=== PATIENT | male | born 1965 | race Caucasian/White ===

== ENCOUNTER 2022-07-04 20:18 | Emergency (ER) | payer OTHER ==
[2022-07-04 20:25] VITALS: BP 129/80; PULSE 72; RESP 18; TEMP 97.2; BMI 25.4
[2022-07-04 22:12] LABS: BASO % 0.2 % (0-2.0); EOS % 2.5 % (0-4.5); HEMATOCRIT 39.4 % (35.4-49); HEMOGLOBIN 13.5 GM/dL (11.7-16.9); LYMPH % 34.3 % (8-40); MCH 30.1 pg (25.7-33.7); MCHC 34.3 g/dl (32.0-35.9); MEAN CELL VOLUME 87.8 fl (80-96); MEAN PLT VOLUME 8.2 fl (7.5-11.1); MONO % 11.7 % (3.8-10.2); NEUT % 51.3 % (42.8-82.8); PLATELET COUNT 186 10^3/uL (134-434); RBC 4.49 M/mm3 (4.00-5.60); RDW 14.2 % (11.9-15.9); WHITE BLOOD COUNT 7.9 K/mm3 (4.0-10.0)
[2022-07-04 22:23] LABS: PH,URINE 6.5 (5.0-8.0); URINE APPEARANCE CLEAR; URINE BILIRUBIN NEGATIVE (NEGATIVE); URINE COLOR YELLOW; URINE GLUCOSE (UA) NEGATIVE (NEGATIVE); URINE KETONE NEGATIVE (NEGATIVE); URINE LEUK ESTERASE NEGATIVE (NEGATIVE); URINE NITRITE NEGATIVE (NEGATIVE); URINE PROTEIN NEGATIVE (NEGATIVE); URINE UROBILINOGEN 0.2 mg/dL (0.2-1.0)
[2022-07-04 22:45] LABS: ALBUMIN 3.9 g/dl (3.4-5.0)
[2022-07-04 22:46] LABS: BLOOD UREA NITROGEN 14.5 mg/dL (7-18)
[2022-07-04 22:47] LABS: CREATININE 0.9 mg/dL (0.55-1.3)
[2022-07-04 22:49] LABS: BILIRUBIN,TOTAL 0.6 mg/dL (0.2-1); TOT PROT 7.5 g/dl (6.4-8.2)
== END 2022-07-05 00:04 | disposition home or self-care (01) ==
LOC: JER 20:18
DX: R41.3 Other amnesia (principal)
CPT/HCPCS: 36415; 80053; 81003; 85025; 87086; 93005; 93010; 99284-25

== ENCOUNTER 2022-07-05 22:52 | Observation (INO) | payer OTHER ==
[2022-07-06 01:00] LABS: BASO % 0.4 % (0-2.0); EOS % 3.1 % (0-4.5); HEMATOCRIT 41.9 % (35.4-49); HEMOGLOBIN 14.1 GM/dL (11.7-16.9); MCH 29.4 pg (25.7-33.7); MCHC 33.6 g/dl (32.0-35.9); MEAN CELL VOLUME 87.5 fl (80-96); MEAN PLT VOLUME 8.5 fl (7.5-11.1); MONO % 12.6 % (3.8-10.2); NEUT % 51.9 % (42.8-82.8); PLATELET COUNT 185 10^3/uL (134-434); RBC 4.79 M/mm3 (4.00-5.60); WHITE BLOOD COUNT 8.3 K/mm3 (4.0-10.0)
[2022-07-06 01:22] LABS: ALBUMIN 4.2 g/dl (3.4-5.0); ANION GAP 7 MMOL/L (8-16); BLOOD UREA NITROGEN 15.7 mg/dL (7-18); CALCIUM 9.5 mg/dL (8.5-10.1); CHLORIDE 104 mmol/L (98-107); CO2 30 mmol/L (21-32); GLUCOSE,RANDOM 107 mg/dL (74-106); MAGNESIUM 2.4 mg/dL (1.8-2.4); SODIUM 140 mmol/L (136-145)
[2022-07-06 01:26] LABS: CREATININE 0.9 mg/dL (0.55-1.3); SGOT/AST 15 U/L (15-37); SGPT/ALT 21 U/L (13-61)
[2022-07-06 01:27] LABS: BILIRUBIN,TOTAL 0.6 mg/dL (0.2-1); TOT PROT 7.8 g/dl (6.4-8.2)
[2022-07-06 01:29] LABS: ALK PHOS 82 U/L (45-117)
[2022-07-06] MEDS ORDERED: MELATONIN 5 MG TABLETS PO ONE (03:04)
[2022-07-06] MEDS ORDERED: MELATONIN 5 MG TABLETS ONE (03:05)
[2022-07-06 04:03] LABS: URINE APPEARANCE CLEAR; URINE BILIRUBIN NEGATIVE (NEGATIVE); URINE COLOR YELLOW; URINE GLUCOSE (UA) NEGATIVE (NEGATIVE); URINE KETONE NEGATIVE (NEGATIVE); URINE LEUK ESTERASE NEGATIVE (NEGATIVE); URINE NITRITE NEGATIVE (NEGATIVE); URINE PROTEIN NEGATIVE (NEGATIVE); URINE UROBILINOGEN 0.2 mg/dL (0.2-1.0)
[2022-07-06 05:46] LABS: METHADONE, UR NEGATIVE (NEGATIVE); URINE BENZODIAZEPINES NEGATIVE (NEGATIVE)
[2022-07-06 05:47] LABS: URINE AMPHETAMINES NEGATIVE (NEGATIVE)
[2022-07-06 05:48] LABS: OPIATES, URI NEGATIVE (NEGATIVE); PHENCYCLIDINE,URINE NEGATIVE (NEGATIVE)
[2022-07-06 05:50] LABS: COCAINE, UR NEGATIVE (NEGATIVE); URINE BARBITURATES NEGATIVE (NEGATIVE)
[2022-07-06] MEDS ORDERED: MAG HYDROX/AL HYDROX/SIMETH 30 ML UNIT-DOSE CUP ONE (06:12)
[2022-07-06] MEDS ORDERED: MAG HYDROX/AL HYDROX/SIMETH 30 ML UNIT-DOSE CUP PO ONE (06:12)
[2022-07-06] MEDS ORDERED: FAMOTIDINE 20 MG TABLET PO ONE (07:42)
[2022-07-06] MEDS ORDERED: FAMOTIDINE 20 MG TABLET ONE (07:53)
[2022-07-06] MEDS ORDERED: ESCITALOPRAM OXALATE 10 MG TABLET ONE (21:52)
[2022-07-06] MEDS: MELATONIN 5 MG TABLETS PO PRN (21:55)
[2022-07-06] MEDS: DONEPEZIL HCL 10 MG TABLET (FP) PO SCH (21:55)
[2022-07-06] MEDS: ESCITALOPRAM OXALATE 20 MG TABLET PO SCH (21:55)
[2022-07-07 06:26] VITALS: BMI 25.4
[2022-07-07] MEDS ORDERED: MAG HYDROX/AL HYDROX/SIMETH 30 ML UNIT-DOSE CUP PO PRN (06:40)
[2022-07-07] MEDS ORDERED: ESCITALOPRAM OXALATE 10 MG TABLET ONE (21:36)
[2022-07-07] MEDS: MELATONIN 5 MG TABLETS PO PRN (22:09)
[2022-07-07] MEDS: ESCITALOPRAM OXALATE 20 MG TABLET PO SCH (22:09)
[2022-07-07] MEDS: DONEPEZIL HCL 10 MG TABLET (FP) PO SCH (22:09)
[2022-07-07 22:56] VITALS: RESP 20
[2022-07-08] MEDS ORDERED: ESCITALOPRAM OXALATE 10 MG TABLET ONE (21:13)
[2022-07-08] MEDS: DONEPEZIL HCL 10 MG TABLET (FP) PO SCH (21:40)
[2022-07-08] MEDS: MELATONIN 5 MG TABLETS PO PRN (21:40)
[2022-07-08] MEDS: ESCITALOPRAM OXALATE 20 MG TABLET PO SCH (21:40)
[2022-07-09] MEDS ORDERED: SUVOREXANT 10 MG TABLET PO PRN (09:44)
[2022-07-09] MEDS ORDERED: ESCITALOPRAM OXALATE 10 MG TABLET ONE (21:10)
[2022-07-09] MEDS: ESCITALOPRAM OXALATE 20 MG TABLET PO SCH (21:11)
[2022-07-09] MEDS: DONEPEZIL HCL 10 MG TABLET (FP) PO SCH (21:11)
[2022-07-10 12:30] VITALS: BP 118/75; PULSE 68; TEMP 98.5
== END 2022-07-10 12:00 | disposition home health service (06) ==
LOC: JER 22:52 → JERBED 07-06 18:30 → INTOOBSV 07-06 18:30 → J8W 07-06 21:25
PROVIDERS: ADMIT Internal Medicine; ATTEND Internal Medicine
DX: F03.90 Unspecified dementia, unspecified severity, without behavioral disturbance, psychotic disturbance, mood disturbance, and anxiety (principal)
CPT/HCPCS: 0241U-QW; 36415; 80053; 80307; 81003; 83735; 84439; 84443; 84479; 85025; 87086; 93005; 93010; 97116-GP; 97161-GP; 99285-25; G0378

== ENCOUNTER 2022-07-13 09:55 | Emergency (ER) | payer OTHER ==
[2022-07-13 10:15] VITALS: BP 129/71; PULSE 79; RESP 18; TEMP 97.6; BMI 24.3
[2022-07-13] MEDS ORDERED: DIPHTH,PERTUSS(ACELL),TET 0.5 ML DISP.SYRIN IM ONE ×2 (10:51→11:28)
== END 2022-07-13 12:24 | disposition home or self-care (01) ==
LOC: JER 09:55
PROC: 3E0234Z Introduction of Serum, Toxoid and Vaccine into Muscle, Percutaneous Approach (ICD-10-PCS; principal; 2022-07-13)
DX: S09.90XA Unspecified injury of head, initial encounter (principal)
CPT/HCPCS: 70450-TC; 90471; 90715; 99284-25

== ENCOUNTER 2022-07-18 20:08 | Emergency (ER) | payer OTHER ==
[2022-07-18 20:51] VITALS: BP 117/76; PULSE 61; RESP 19; TEMP 98; BMI 24.3
[2022-07-18] MEDS ORDERED: ACETAMINOPHEN 500 MG TABLET (FP) PO ONE (22:45)
[2022-07-18 22:54] LABS: EPI CELLS 7 /uL (0-25.1); HYALINE CASTS 1 /uL (0-3.1); URINE APPEARANCE CLEAR; URINE BACTERIA 16 /uL (0-1359); URINE BILIRUBIN NEGATIVE (NEGATIVE); URINE COLOR YELLOW; URINE GLUCOSE (UA) NEGATIVE (NEGATIVE); URINE KETONE NEGATIVE (NEGATIVE); URINE LEUK ESTERASE TRACE (NEGATIVE); URINE NITRITE NEGATIVE (NEGATIVE); URINE PROTEIN NEGATIVE (NEGATIVE); URINE RBC 9 /uL (0-23.9); URINE UROBILINOGEN 0.2 mg/dL (0.2-1.0); URINE WBC 9 /uL (0-25.8)
[2022-07-18] MEDS ORDERED: ACETAMINOPHEN 500 MG TABLET (FP) ONE (23:32)
[2022-07-18] MEDS ORDERED: CEPHALEXIN MONOHYDRATE 500 MG CAPSULE (UD) PO ONE (23:58)
[2022-07-19] MEDS ORDERED: CEPHALEXIN MONOHYDRATE 500 MG CAPSULE (UD) ONE (00:03)
[2022-07-19] MEDS ORDERED: IBUPROFEN 600 MG TABLET (FP) PO ONE ×2 (00:07→00:08)
== END 2022-07-19 00:11 | disposition home or self-care (01) ==
LOC: JER 20:08
DX: N39.0 Urinary tract infection, site not specified (principal); N50.812 Left testicular pain
CPT/HCPCS: 36415; 76870-TC; 81003; 87086; 87491; 87591; 99284-25

== ENCOUNTER 2022-08-01 10:31 | Inpatient (IN) | payer OTHER ==
[2022-08-01 11:48] VITALS: BMI 24.3
[2022-08-01] MEDS ORDERED: ACETAMINOPHEN 325 MG TABLET (FP) PO ONE ×2 (13:42→20:37)
[2022-08-01 13:45] LABS: BASO % 0.4 % (0-2.0); EOS % 1.7 % (0-4.5); HEMATOCRIT 39.8 % (35.4-49); HEMOGLOBIN 13.5 GM/dL (11.7-16.9); LYMPH % 25.5 % (8-40); MEAN CELL VOLUME 88.2 fl (80-96); MEAN PLT VOLUME 8.3 fl (7.5-11.1); MONO % 10.1 % (3.8-10.2); NEUT % 62.3 % (42.8-82.8); PLATELET COUNT 178 10^3/uL (134-434); RBC 4.51 M/mm3 (4.00-5.60); RDW 14.4 % (11.9-15.9); WHITE BLOOD COUNT 7.7 K/mm3 (4.0-10.0)
[2022-08-01] MEDS ORDERED: ACETAMINOPHEN 325 MG TABLET (FP) ONE ×2 (13:56→22:59)
[2022-08-01 14:13] LABS: CALCIUM 8.8 mg/dL (8.5-10.1)
[2022-08-01 14:14] LABS: ALBUMIN 3.8 g/dl (3.4-5.0)
[2022-08-01 14:19] LABS: BILIRUBIN,TOTAL 0.7 mg/dL (0.2-1); TOT PROT 7.1 g/dl (6.4-8.2)
[2022-08-01 14:31] LABS: CREATININE 0.9 mg/dL (0.55-1.3)
[2022-08-01 18:22] LABS: URINE APPEARANCE CLEAR; URINE BILIRUBIN NEGATIVE (NEGATIVE); URINE COLOR YELLOW; URINE GLUCOSE (UA) NEGATIVE (NEGATIVE); URINE KETONE NEGATIVE (NEGATIVE); URINE LEUK ESTERASE NEGATIVE (NEGATIVE); URINE NITRITE NEGATIVE (NEGATIVE); URINE PROTEIN NEGATIVE (NEGATIVE)
[2022-08-01] MEDS ORDERED: MELATONIN 5 MG TABLETS PO ONE (19:49)
[2022-08-01] MEDS ORDERED: MELATONIN 5 MG TABLETS ONE (20:13)
[2022-08-02] MEDS ORDERED: MELATONIN 5 MG TABLETS PO ONE (03:17)
[2022-08-02 09:24] LABS: ALBUMIN 3.8 g/dl (3.4-5.0)
[2022-08-02 09:25] LABS: BLOOD UREA NITROGEN 18.3 mg/dL (7-18)
[2022-08-02 09:27] LABS: CREATININE 0.8 mg/dL (0.55-1.3)
[2022-08-02] MEDS ORDERED: ESCITALOPRAM OXALATE 10 MG TABLET ONE (09:30)
[2022-08-02 09:32] LABS: BASO % 0.3 % (0-2.0); EOS % 2.6 % (0-4.5); HEMOGLOBIN 13.6 GM/dL (11.7-16.9); LYMPH % 25.2 % (8-40); MCH 29.8 pg (25.7-33.7); MEAN CELL VOLUME 87.7 fl (80-96); MEAN PLT VOLUME 8.6 fl (7.5-11.1); MONO % 9.1 % (3.8-10.2); NEUT % 62.8 % (42.8-82.8); PLATELET COUNT 182 10^3/uL (134-434); RBC 4.56 M/mm3 (4.00-5.60); RDW 13.9 % (11.9-15.9)
[2022-08-02] MEDS: DONEPEZIL HCL 10 MG TABLET (FP) PO SCH (10:32)
[2022-08-02] MEDS: HEPARIN NA (PORCINE) 5,000 UNITS/ML 1ML VIAL SQ SCH ×2 (10:32→21:19)
[2022-08-02] MEDS: ESCITALOPRAM OXALATE 20 MG TABLET PO SCH (10:32)
[2022-08-02] MEDS: FAMOTIDINE 20 MG TABLET PO SCH (21:20)
[2022-08-03] MEDS ORDERED: ESCITALOPRAM OXALATE 10 MG TABLET ONE ×2 (09:29→09:30)
[2022-08-03] MEDS: DONEPEZIL HCL 10 MG TABLET (FP) PO SCH (09:35)
[2022-08-03] MEDS: FAMOTIDINE 20 MG TABLET PO SCH ×2 (09:35→22:05)
[2022-08-03] MEDS: HEPARIN NA (PORCINE) 5,000 UNITS/ML 1ML VIAL SQ SCH ×2 (09:36→22:05)
[2022-08-03] MEDS: ESCITALOPRAM OXALATE 20 MG TABLET PO SCH (09:36)
[2022-08-03 20:28] LABS: OPIATES, URI NEGATIVE (NEGATIVE); URINE BARBITURATES NEGATIVE (NEGATIVE)
[2022-08-03 20:29] LABS: COCAINE, UR NEGATIVE (NEGATIVE); METHADONE, UR NEGATIVE (NEGATIVE); PHENCYCLIDINE,URINE NEGATIVE (NEGATIVE); URINE AMPHETAMINES NEGATIVE (NEGATIVE); URINE BENZODIAZEPINES NEGATIVE (NEGATIVE)
[2022-08-03] MEDS: MELATONIN 5 MG TABLETS PO PRN (23:30)
[2022-08-04] MEDS ORDERED: ESCITALOPRAM OXALATE 10 MG TABLET ONE (09:57)
[2022-08-04] MEDS: DONEPEZIL HCL 10 MG TABLET (FP) PO SCH (09:59)
[2022-08-04] MEDS: FAMOTIDINE 20 MG TABLET PO SCH ×2 (09:59→23:24)
[2022-08-04] MEDS: HEPARIN NA (PORCINE) 5,000 UNITS/ML 1ML VIAL SQ SCH ×2 (10:00→23:23)
[2022-08-04] MEDS: ESCITALOPRAM OXALATE 20 MG TABLET PO SCH (10:00)
[2022-08-04] MEDS: MELATONIN 5 MG TABLETS PO PRN (23:24)
[2022-08-05] MEDS ORDERED: ESCITALOPRAM OXALATE 10 MG TABLET ONE (10:36)
[2022-08-05] MEDS: FAMOTIDINE 20 MG TABLET PO SCH ×2 (10:38→21:31)
[2022-08-05] MEDS: DONEPEZIL HCL 10 MG TABLET (FP) PO SCH (10:38)
[2022-08-05] MEDS: ESCITALOPRAM OXALATE 20 MG TABLET PO SCH (10:38)
[2022-08-05] MEDS: HEPARIN NA (PORCINE) 5,000 UNITS/ML 1ML VIAL SQ SCH ×2 (10:42→21:30)
[2022-08-05] MEDS: MELATONIN 5 MG TABLETS PO PRN (22:35)
[2022-08-05] MEDS: ACETAMINOPHEN 325 MG TABLET (FP) PO PRN (22:35)
[2022-08-06] MEDS ORDERED: ESCITALOPRAM OXALATE 10 MG TABLET ONE (10:40)
[2022-08-06] MEDS: DONEPEZIL HCL 10 MG TABLET (FP) PO SCH (10:50)
[2022-08-06] MEDS: HEPARIN NA (PORCINE) 5,000 UNITS/ML 1ML VIAL SQ SCH ×2 (10:50→23:22)
[2022-08-06] MEDS: FAMOTIDINE 20 MG TABLET PO SCH ×2 (10:50→23:22)
[2022-08-06] MEDS: ESCITALOPRAM OXALATE 20 MG TABLET PO SCH (10:51)
[2022-08-07] MEDS ORDERED: ESCITALOPRAM OXALATE 10 MG TABLET ONE (09:45)
[2022-08-07] MEDS: DONEPEZIL HCL 10 MG TABLET (FP) PO SCH (10:05)
[2022-08-07] MEDS: FAMOTIDINE 20 MG TABLET PO SCH ×2 (10:05→22:03)
[2022-08-07] MEDS: HEPARIN NA (PORCINE) 5,000 UNITS/ML 1ML VIAL SQ SCH ×2 (10:06→22:03)
[2022-08-07] MEDS: ESCITALOPRAM OXALATE 20 MG TABLET PO SCH (10:06)
[2022-08-08] MEDS ORDERED: ESCITALOPRAM OXALATE 10 MG TABLET ONE (10:29)
[2022-08-08] MEDS: FAMOTIDINE 20 MG TABLET PO SCH ×2 (10:38→21:40)
[2022-08-08] MEDS: HEPARIN NA (PORCINE) 5,000 UNITS/ML 1ML VIAL SQ SCH ×2 (10:38→21:40)
[2022-08-08] MEDS: DONEPEZIL HCL 10 MG TABLET (FP) PO SCH (10:38)
[2022-08-08] MEDS: ESCITALOPRAM OXALATE 20 MG TABLET PO SCH (10:39)
[2022-08-08] MEDS: ACETAMINOPHEN 325 MG TABLET (FP) PO PRN (10:47)
[2022-08-08] MEDS: MELATONIN 5 MG TABLETS PO PRN (21:41)
[2022-08-09 10:05] VITALS: TEMP 97.6
[2022-08-09] MEDS ORDERED: ESCITALOPRAM OXALATE 10 MG TABLET ONE (11:54)
[2022-08-09] MEDS: FAMOTIDINE 20 MG TABLET PO SCH (11:55)
[2022-08-09] MEDS: ACETAMINOPHEN 325 MG TABLET (FP) PO PRN (11:56)
[2022-08-09] MEDS: DONEPEZIL HCL 10 MG TABLET (FP) PO SCH (11:56)
[2022-08-09] MEDS: ESCITALOPRAM OXALATE 20 MG TABLET PO SCH (11:56)
[2022-08-09 15:43] VITALS: BP 121/69; PULSE 99; RESP 17
== END 2022-08-09 20:38 | disposition home or self-care (01) | DRG 754 ==
LOC: JER 10:31 → JERBED 18:52 → OBSVTOIN 18:52 → INTOOBSV 18:52 → J8W 23:53 → OBSVTOIN 08-03 10:08
PROVIDERS: ADMIT Family Medicine; ATTEND Internal Medicine
DX: F32.A Depression, unspecified (principal); F03.90 Unspecified dementia, unspecified severity, without behavioral disturbance, psychotic disturbance, mood disturbance, and anxiety; R45.851 Suicidal ideations; N43.3 Hydrocele, unspecified; N50.819 Testicular pain, unspecified
CPT/HCPCS: 36415; 80053; 80307; 81003; 84443; 85025; 87086; 93005; 93010; 99285-25; C9803-CS; G0378; J1644; U0003; U0005

== ENCOUNTER 2023-07-01 16:47 | Observation (INO) | payer OTHER ==
[2023-07-01 19:00] LABS: BASO % 0.4 % (0-2.0); EOS % 1.1 % (0-4.5); HEMATOCRIT 40.8 % (35.4-49); HEMOGLOBIN 14.2 GM/dL (11.7-16.9); LYMPH % 15.5 % (8-40); MCH 29.6 pg (25.7-33.7); MCHC 34.9 g/dl (32.0-35.9); MEAN CELL VOLUME 84.8 fl (80-96); MEAN PLT VOLUME 8.9 fl (7.5-11.1); MONO % 9.4 % (3.8-10.2); NEUT % 73.6 % (42.8-82.8); PLATELET COUNT 222 10^3/uL (134-434); RBC 4.81 M/mm3 (4.00-5.60); RDW 14.3 % (11.9-15.9); WHITE BLOOD COUNT 12.7 K/mm3 (4.0-10.0)
[2023-07-01 19:08] LABS: INR 1.19 (0.83-1.09); PROTHROMBIN TIME (PATIENT) 13.8 SEC (9.7-13.0)
[2023-07-01 19:11] LABS: ACTIVATED PTT 30.7 SECONDS (25.2-36.5)
[2023-07-01 19:41] LABS: POTASSIUM 3.9 mmol/L (3.5-5.1)
[2023-07-01 19:44] LABS: BLOOD UREA NITROGEN 28.3 mg/dL (7-18)
[2023-07-01 19:49] LABS: BILIRUBIN,TOTAL 0.9 mg/dL (0.2-1); TOT PROT 7.7 g/dl (6.4-8.2)
[2023-07-01] MEDS ORDERED: LACTATED RINGERS SOLUTION 1000 ML INFUS.BAG IV ONE (20:20)
[2023-07-01 22:35] LABS: LACTIC ACID 2.5 mmol/L (0.4-2.0)
[2023-07-01 22:53] LABS: URINE APPEARANCE CLEAR; URINE BILIRUBIN NEGATIVE (NEGATIVE); URINE COLOR YELLOW; URINE GLUCOSE (UA) NEGATIVE (NEGATIVE); URINE KETONE NEGATIVE (NEGATIVE); URINE LEUK ESTERASE NEGATIVE (NEGATIVE); URINE NITRITE NEGATIVE (NEGATIVE); URINE PROTEIN NEGATIVE (NEGATIVE)
[2023-07-02 08:15] LABS: HEMATOCRIT 40.8 % (35.4-49); HEMOGLOBIN 14.1 GM/dL (11.7-16.9); MCHC 34.7 g/dl (32.0-35.9); MEAN CELL VOLUME 86.5 fl (80-96); MEAN PLT VOLUME 8.5 fl (7.5-11.1); PLATELET COUNT 197 10^3/uL (134-434); RBC 4.71 M/mm3 (4.00-5.60); WHITE BLOOD COUNT 10.7 K/mm3 (4.0-10.0)
[2023-07-02 08:25] LABS: POTASSIUM 3.9 mmol/L (3.5-5.1)
[2023-07-02 08:33] LABS: BLOOD UREA NITROGEN 20.6 mg/dL (7-18); CALCIUM 8.8 mg/dL (8.5-10.1)
[2023-07-02 08:34] LABS: ALBUMIN 3.9 g/dl (3.4-5.0); MAGNESIUM 2.2 mg/dL (1.8-2.4)
[2023-07-02 08:36] LABS: PHOSPHOROUS 3.2 mg/dL (2.5-4.9)
[2023-07-02 08:37] LABS: CREATININE 0.8 mg/dL (0.55-1.3)
[2023-07-02 08:38] LABS: BILIRUBIN,TOTAL 1.4 mg/dL (0.2-1); TOT PROT 7.4 g/dl (6.4-8.2)
[2023-07-02] MEDS ORDERED: PANTOPRAZOLE 40 MG TABLET PO ONE (09:36)
[2023-07-02] MEDS: PANTOPRAZOLE 20 MG TABLET PO SCH (09:56)
[2023-07-02] MEDS: FUROSEMIDE 20 MG TABLET (FP) PO SCH (10:48)
[2023-07-02] MEDS: ENOXAPARIN NA (PORCINE) 40 MG/0.4 ML DISP.SYRIN SQ SCH (10:49)
[2023-07-02] MEDS: MEMANTINE HCL 10 MG TABLET (FP) PO SCH ×2 (10:49→22:09)
[2023-07-02 11:07] LABS: METHADONE, UR NEGATIVE (NEGATIVE); OPIATES, URI NEGATIVE (NEGATIVE); PHENCYCLIDINE,URINE NEGATIVE (NEGATIVE); URINE BARBITURATES NEGATIVE (NEGATIVE); URINE BENZODIAZEPINES NEGATIVE (NEGATIVE)
[2023-07-02 11:08] LABS: COCAINE, UR NEGATIVE (NEGATIVE); URINE AMPHETAMINES NEGATIVE (NEGATIVE)
[2023-07-02] MEDS ORDERED: LACTATED RINGERS SOLUTION 1,000 ML/1,000 ML INFUS.BAG IV SCH (14:30)
[2023-07-02 14:45] VITALS: BMI 24.6
[2023-07-02] MEDS ORDERED: cefTRIAXone SODIUM 1 GM VIAL ONE (15:49)
[2023-07-02] MEDS: CEFTRIAXONE 1 GM in DEXTROSE 5%-WATER - 50 ML IVPB SCH (15:53)
[2023-07-02] MEDS ORDERED: MIRTAZAPINE 15 MG TABLET (FP) ONE (21:39)
[2023-07-02] MEDS ORDERED: RIVASTIGMINE TARTRATE 3 MG CAPSULE PO SCH (22:00)
[2023-07-02] MEDS: RIVASTIGMINE TARTRATE 1.5 MG CAPSULE PO SCH (22:08)
[2023-07-02] MEDS: ATORVASTATIN CA 40 MG TABLET (FP) PO SCH (22:09)
[2023-07-02] MEDS: MIRTAZAPINE 30 MG TABLET PO SCH (22:09)
[2023-07-03] MEDS: PANTOPRAZOLE 20 MG TABLET PO SCH (06:25)
[2023-07-03] MEDS: CEFTRIAXONE 1 GM in DEXTROSE 5%-WATER - 50 ML IVPB SCH (09:13)
[2023-07-03] MEDS: ENOXAPARIN NA (PORCINE) 40 MG/0.4 ML DISP.SYRIN SQ SCH (09:17)
[2023-07-03] MEDS: MEMANTINE HCL 10 MG TABLET (FP) PO SCH ×2 (09:24→21:25)
[2023-07-03] MEDS: FUROSEMIDE 20 MG TABLET (FP) PO SCH (09:24)
[2023-07-03] MEDS: RIVASTIGMINE TARTRATE 1.5 MG CAPSULE PO SCH ×2 (09:25→21:25)
[2023-07-03] MEDS ORDERED: QUEtiapine FUMARATE 50 MG TABLET PO ONE (14:21)
[2023-07-03] MEDS ORDERED: MIRTAZAPINE 15 MG TABLET (FP) ONE (21:08)
[2023-07-03] MEDS: ATORVASTATIN CA 40 MG TABLET (FP) PO SCH (21:25)
[2023-07-03] MEDS: MIRTAZAPINE 30 MG TABLET PO SCH (21:25)
[2023-07-04] MEDS: PANTOPRAZOLE 20 MG TABLET PO SCH (06:17)
[2023-07-04] MEDS: RIVASTIGMINE TARTRATE 1.5 MG CAPSULE PO SCH ×2 (10:10→21:29)
[2023-07-04] MEDS: FUROSEMIDE 20 MG TABLET (FP) PO SCH (10:10)
[2023-07-04] MEDS: CEFTRIAXONE 1 GM in DEXTROSE 5%-WATER - 50 ML IVPB SCH (10:10)
[2023-07-04] MEDS: MEMANTINE HCL 10 MG TABLET (FP) PO SCH ×2 (10:10→21:28)
[2023-07-04] MEDS: ENOXAPARIN NA (PORCINE) 40 MG/0.4 ML DISP.SYRIN SQ SCH (10:13)
[2023-07-04 10:34] LABS: HEMATOCRIT 41.9 % (35.4-49); HEMOGLOBIN 14.1 GM/dL (11.7-16.9); MCHC 33.6 g/dl (32.0-35.9); MEAN CELL VOLUME 86.5 fl (80-96); PLATELET COUNT 198 10^3/uL (134-434); RBC 4.84 M/mm3 (4.00-5.60); RDW 14.1 % (11.9-15.9); WHITE BLOOD COUNT 9.8 K/mm3 (4.0-10.0)
[2023-07-04 11:19] LABS: ALBUMIN 3.9 g/dl (3.4-5.0); BLOOD UREA NITROGEN 11.9 mg/dL (7-18); CALCIUM 8.9 mg/dL (8.5-10.1); MAGNESIUM 2.6 mg/dL (1.8-2.4)
[2023-07-04 11:22] LABS: CREATININE 0.7 mg/dL (0.55-1.3)
[2023-07-04 11:24] LABS: BILIRUBIN,TOTAL 1.4 mg/dL (0.2-1)
[2023-07-04 11:25] LABS: POTASSIUM 3.6 mmol/L (3.5-5.1)
[2023-07-04 11:26] LABS: TOT PROT 7.8 g/dl (6.4-8.2)
[2023-07-04 14:08] VITALS: RESP 18
[2023-07-04] MEDS: COLLAGENASE CLOSTRIDIUM HIST. 30 GRAMS TUBE TP SCH (17:39)
[2023-07-04] MEDS ORDERED: MIRTAZAPINE 15 MG TABLET (FP) ONE (21:07)
[2023-07-04] MEDS: MIRTAZAPINE 30 MG TABLET PO SCH (21:29)
[2023-07-04] MEDS: QUEtiapine FUMARATE 50 MG TABLET PO SCH (21:29)
[2023-07-04] MEDS: ATORVASTATIN CA 40 MG TABLET (FP) PO SCH (21:35)
[2023-07-05] MEDS: PANTOPRAZOLE 20 MG TABLET PO SCH (06:34)
[2023-07-05 09:20] LABS: HEMATOCRIT 42.5 % (35.4-49); HEMOGLOBIN 14.7 GM/dL (11.7-16.9); MCH 29.8 pg (25.7-33.7); MCHC 34.5 g/dl (32.0-35.9); MEAN CELL VOLUME 86.4 fl (80-96); MEAN PLT VOLUME 8.7 fl (7.5-11.1); PLATELET COUNT 180 10^3/uL (134-434); RBC 4.92 M/mm3 (4.00-5.60); WHITE BLOOD COUNT 10.3 K/mm3 (4.0-10.0)
[2023-07-05 09:35] LABS: BLOOD UREA NITROGEN 16.5 mg/dL (7-18)
[2023-07-05 09:37] LABS: CALCIUM 8.8 mg/dL (8.5-10.1)
[2023-07-05 09:39] LABS: ALBUMIN 3.6 g/dl (3.4-5.0); BILIRUBIN,DIRECT 0.3 mg/dL (0.0-0.2); CREATININE 0.7 mg/dL (0.55-1.3); MAGNESIUM 2.6 mg/dL (1.8-2.4)
[2023-07-05 09:41] LABS: BILIRUBIN,TOTAL 1.4 mg/dL (0.2-1); TOT PROT 7.4 g/dl (6.4-8.2)
[2023-07-05] MEDS: ENOXAPARIN NA (PORCINE) 40 MG/0.4 ML DISP.SYRIN SQ SCH (10:13)
[2023-07-05] MEDS: MEMANTINE HCL 10 MG TABLET (FP) PO SCH ×2 (10:13→21:29)
[2023-07-05] MEDS: FUROSEMIDE 20 MG TABLET (FP) PO SCH (10:13)
[2023-07-05] MEDS: RIVASTIGMINE TARTRATE 1.5 MG CAPSULE PO SCH ×2 (10:14→21:29)
[2023-07-05] MEDS: COLLAGENASE CLOSTRIDIUM HIST. 30 GRAMS TUBE TP SCH (18:18)
[2023-07-05] MEDS ORDERED: MIRTAZAPINE 15 MG TABLET (FP) ONE (21:08)
[2023-07-05] MEDS: ATORVASTATIN CA 40 MG TABLET (FP) PO SCH (21:29)
[2023-07-05] MEDS: QUEtiapine FUMARATE 50 MG TABLET PO SCH (21:29)
[2023-07-05] MEDS: MIRTAZAPINE 30 MG TABLET PO SCH (21:29)
[2023-07-06] MEDS: PANTOPRAZOLE 20 MG TABLET PO SCH (06:26)
[2023-07-06] MEDS: ENOXAPARIN NA (PORCINE) 40 MG/0.4 ML DISP.SYRIN SQ SCH (09:51)
[2023-07-06] MEDS: FUROSEMIDE 20 MG TABLET (FP) PO SCH (09:51)
[2023-07-06] MEDS: MEMANTINE HCL 10 MG TABLET (FP) PO SCH ×2 (09:51→22:31)
[2023-07-06] MEDS: COLLAGENASE CLOSTRIDIUM HIST. 30 GRAMS TUBE TP SCH (09:52)
[2023-07-06] MEDS: RIVASTIGMINE TARTRATE 1.5 MG CAPSULE PO SCH ×2 (09:52→22:30)
[2023-07-06] MEDS ORDERED: MIRTAZAPINE 15 MG TABLET (FP) ONE (21:48)
[2023-07-06] MEDS: MIRTAZAPINE 30 MG TABLET PO SCH (22:31)
[2023-07-06] MEDS: QUEtiapine FUMARATE 50 MG TABLET PO SCH (22:31)
[2023-07-06] MEDS: ATORVASTATIN CA 40 MG TABLET (FP) PO SCH (22:31)
[2023-07-07] MEDS: PANTOPRAZOLE 20 MG TABLET PO SCH (06:02)
[2023-07-07] MEDS: ENOXAPARIN NA (PORCINE) 40 MG/0.4 ML DISP.SYRIN SQ SCH (11:10)
[2023-07-07] MEDS: MEMANTINE HCL 10 MG TABLET (FP) PO SCH ×2 (11:11→22:15)
[2023-07-07] MEDS: RIVASTIGMINE TARTRATE 1.5 MG CAPSULE PO SCH ×2 (11:11→22:22)
[2023-07-07] MEDS: FUROSEMIDE 20 MG TABLET (FP) PO SCH (11:11)
[2023-07-07] MEDS: COLLAGENASE CLOSTRIDIUM HIST. 30 GRAMS TUBE TP SCH (18:37)
[2023-07-07] MEDS ORDERED: MIRTAZAPINE 15 MG TABLET (FP) ONE (21:32)
[2023-07-07] MEDS: QUEtiapine FUMARATE 50 MG TABLET PO SCH (22:15)
[2023-07-07] MEDS: ATORVASTATIN CA 40 MG TABLET (FP) PO SCH (22:15)
[2023-07-07] MEDS: MIRTAZAPINE 30 MG TABLET PO SCH (22:15)
[2023-07-08] MEDS: PANTOPRAZOLE 20 MG TABLET PO SCH (06:56)
[2023-07-08 09:29] VITALS: BP 116/71; PULSE 95; TEMP 98.2
[2023-07-08] MEDS ORDERED: MULTIVITAMINS THER W-MINERALS COMBO TABLET (FP) PO SCH (10:00)
[2023-07-08] MEDS: RIVASTIGMINE TARTRATE 1.5 MG CAPSULE PO SCH (10:43)
[2023-07-08] MEDS: MEMANTINE HCL 10 MG TABLET (FP) PO SCH (10:44)
[2023-07-08] MEDS: FUROSEMIDE 20 MG TABLET (FP) PO SCH (10:44)
[2023-07-08] MEDS: ENOXAPARIN NA (PORCINE) 40 MG/0.4 ML DISP.SYRIN SQ SCH (10:44)
[2023-07-08] MEDS: COLLAGENASE CLOSTRIDIUM HIST. 30 GRAMS TUBE TP SCH (10:55)
== END 2023-07-08 15:26 ==
LOC: JER 16:47 → JERBED 20:24 → J6S 07-02 14:36
PROVIDERS: ADMIT Internal Medicine; ATTEND Internal Medicine
PROC: 3E03329 Introduction of Other Anti-infective into Peripheral Vein, Percutaneous Approach (ICD-10-PCS; principal; 2023-07-01)
PROC: 3E023GC Introduction of Other Therapeutic Substance into Muscle, Percutaneous Approach (ICD-10-PCS; 2023-07-01)
PROC: 3E0337Z Introduction of Electrolytic and Water Balance Substance into Peripheral Vein, Percutaneous Approach (ICD-10-PCS; 2023-07-01)
DX: G93.41 Metabolic encephalopathy (principal); G30.0 Alzheimer's disease with early onset; F02.80 Dementia in other diseases classified elsewhere, unspecified severity, without behavioral disturbance, psychotic disturbance, mood disturbance, and anxiety; I10 Essential (primary) hypertension; E78.5 Hyperlipidemia, unspecified; F32.A Depression, unspecified; L84 Corns and callosities; L53.8 Other specified erythematous conditions; R41.82 Altered mental status, unspecified
CPT/HCPCS: 0241U-QW; 36415; 70450-TC; 71045-TC-FY; 71250-TC; 73630-TC-LT; 73630-TC-RT-FY; 73700-TC-RT; 80053; 80307; 81003; 82248; 83605; 83735; 84100; 84484; 85025; 85027; 85610; 85651; 85730; 86140; 86850; 86900; 86901; 87040; 87086; 93005; 93010; 93926-TC; 93970-TC; 96361; 96365; 96372; 99285-25; G0378